=== PATIENT | female | born 1985 | race Caucasian/White ===

== ENCOUNTER 2022-12-14 07:32 | Emergency (ER) | payer SELFPAY ==
--- OUTSIDE RECORDS SUMMARY | 2022-12-14 07:36 | XMS REPORT | Continuity of Care Document ---
:1985 Author Organization [facility] t Address [address] [place] [address] Care Team Providers Name Role Phone Pcp, Patient Does Not Have A Primary Care Physician +[id number] Doctor Unassigned, [place] Attending Clinician Unavailable Problems Condition Condition Condition Status Onset Resolution Last Treating Co mments Source Name Details Category Date Date Treatment Clinician Date Contracept Contracept Disease Active U nivers [place] 01-20 [place] Excessive Excessive Disease Active Uni vers or or 01-20 ity of frequent frequent 00:00: [place] menstruati menstruati 00 Me dical on on Branch BV BV Disease Active Univers (bacterial (bacterial 01-20 it y of vaginosis[place] [facility] History of History of Disease Active U nivers tubal tubal 01-20 ity of ligation ligation 00:00: [address] Allergies, Adverse Reactions, Alerts This patient has no known allergies or adverse reactions. Social History Social Habit Start Date Stop Date Quantity Comments Source Alcohol intake 2019-05-29 2019-05-29 [facility] 00:00:00 00:00:00 non-drinker of [facility] alcohol [place] (finding) Sex Assigned At [birth year] Universit y of 00:00:00 00:00:00 [facility] Smoking Status Start Date Stop Date Source Never smoked tobacco [facility] Medications Ordered Filled Start Stop Current Ordering Indication Dosage Frequency Signature Comments Components Source Medication Medication Date Date Medication? Clinician (SIG) Name Name acetaminoph Yes [id number] 1{tbl} Take 1 Univers en-codeine 7-08 tablet by ity of (TYLENOL-CO 00:00: mouth [place] DEINE #3) 00 every 4 Medical 300-30 mg (four) Branch tablet hours as needed for Pain (scale 7-10). norgestimat Yes [id number] 1{tbl} Take 1 Tab Univers e-ethinyl 2-29 by mouth ity of estradiol 00:00: daily. [place] (ORTHO 00 Medical TRI-CYCLEN, Branch 28,) 0.18/0.215/ 0.25 mg-35 mcg (28) tablet metroNIDAZO Yes [id number] 500mg Take 1 Tab Univers LE (FLAGYL) 2-29 by mouth 2 it y of 500 mg 00:00: (two) [place] tablet 00 times Medical daily. Branch acetaminoph Yes 1{tbl} Take 1 Tab Univers en-codeine 4-20 by mouth ity o f (TYLENOL 00:00: every 4 [place] #3) 300-30 00 (four) Medical mg tablet hours as Branch needed for Pain (scale 7-10). chlorhexidi Yes 15mL Swish and U nivers ne 4-20 spit out ity of (PERIDEX) 00:00: 15 mL 2 [place] 0.12 % 00 (two) Medical mouthwash times Branch daily. ibuprofen Yes 600mg Take 1 Tab U nivers (MOTRIN) 4-20 by mouth ity of 600 mg 00:00: every 6 [place] tablet 00 (six) Medical hours as Branch needed for Pain (scale 4-6). penicillin Yes 500mg Take 1 Tab Univers v potassium 1-21 by mouth 2 it y of (PEN-VEE K) 00:00: (two) [place] 500 mg 00 times Medical tablet daily. Branch Immunizations Ordered Filled Immunization Date Status Comments Sour e Immunization Name Name Influenza Virus 2008-11-03 Completed Universit y of Vaccine 00:00:00 [facility] MMR 2008-11-03 Completed University of 00:00:00 [facility] Procedures Procedure Date / Time Performing Clinician Source Performed AUTHORIZATION FOR 2022-08-04 05:01:00 Doctor Unassigned, No Univ [facility] RELEASE OF PHI Name Medical Branch Encounters Start End Encounter Admission Attending Care Care Encounter Source Date/Time Date/Time Type Type Clinicians Facility Department ID 2022-08-04 2022-08-04 Orders Doctor SAMINA [id number] Univers 00:00:00 00:00:00 Only Unassigned, ALHAJI [id number] ity of [place] [facility] [id number] [place] as [id number] [facility] 009 Branch Results This patient has no known results.
[2022-12-14] MEDS ORDERED: KETOROLAC 30 MG/ML INJ ONE (07:54)
[2022-12-14] MEDS ORDERED: NA CHLORIDE 0.9% 1,000 ML ONE (07:55)
[2022-12-14 08:08] LABS: Absolute Lymphocytes (CBC) 3.5 K/uL (0.7-4.9); Hematocrit 38.5 % (36.0-45.0); Lymphocytes % 31.4 % (15.3-44.8); MCV 93.1 fL (80-100); RBC Red Blood Cell Count 4.14 M/uL (3.86-4.86)
[2022-12-14 08:19] LABS: Urine Blood Negative (Negative); Urine Glucose Negative (Negative); Urine Protein Negative (Negative); Urine Specific Gravity 1.015 (1.005-1.030)
[2022-12-14 08:21] LABS: Albumin 3.8 g/dL (3.4-5.0); Bilirubin Total 0.5 mg/dL (0.2-1.0); Potassium 4.2 mmol/L (3.5-5.1); Protein, Total 7.2 g/dL (6.4-8.2)
[2022-12-14 08:28] LABS: Urine Specific Gravity/Preg 1.015 (1.005-1.030)
--- NOTE | 2022-12-14 09:09 | RAD REPORT ---
EXAM DESCRIPTION: US - Transvaginal Study Probe - 12/14/2022 9:01 am CLINICAL HISTORY: ABD PAIN Pelvic pain. COMPARISON: No comparisons FINDINGS: The uterus is normal in size, shape and echotexture. The uterus measures 9.0 x 5.5 x 3.8 c m. The endometrial stripe measures 10 mm, normal. Both ovaries are normal in size, shape and echotexture. The right ovary measures 3.0 x 2.0 x 1.6 cm. The left ovary measures 5.5 x 4.9 x 3.9 cm.. 4.3 x 4.1 cm intermediate echogenicity lesion left ova ry seen. This has relatively low level internal echoes segment diffuse pattern. This is favored to be hemorrhagic cyst or endometrioma. Normal Doppler blood flow was demonstrated to both ovaries. No significant pelvic ascites. IMPRESSION: 4 cm left ovarian lesion noted which is favored to represent hemorrhagic cyst or endomet rioma.Recommend follow-up pelvic sonography in 6-8 weeks.
--- NOTE | 2022-12-14 09:24 | ER ---
Nurse's Notes [facility] Name: Shauna Ritchie Age: 37 yrs Sex: Female : 1985 Arrival Date: 12/14/2022 Time: 07:35 Bed 5 Private MD: Diagnosis: Other and unspecified ovarian cysts;Lower abdominal pain, unspecified Presentation: 12/14 07:51 Chief complaint: Patient states: Woke up this morning with sharp, throbbing LLQ pain ss that radiates to vagina and down L leg. HX of ovarian cysts. Pt reports this feels similar. Coronavirus screen: Client denies travel out of the [place] in the last 14 days. Ebola Screen: Patient denies exposure to infectious person. Patient denies travel to an Ebola-affected area in the 21 days before illness onset. Initial Sepsis Screen: Does the patient meet any 2 criteria? No. Patient's initial sepsis screen is negative. Does the patient have a suspected source of infection? No. Patient's initial sepsis screen is negative. Risk Assessment: Do you want to hurt yourself or someone else? Patient reports no desire to harm self or others. Onset of symptoms was December 14, 2022. 07:51 Method Of Arrival: Ambulatory ss 07:51 Acuity: THUAN 3 ss Triage Assessment: 08:01 General: Appears uncomfortable, Behavior is calm, cooperative. Pain: Complains of pain ap3 in left lower quadrant Pain radiates to left leg. Neuro: Oriented to person, place, time. Cardiovascular: Patient's skin is warm and dry. Respiratory: Airway is patent Respiratory effort is even, unlabored. GI: Reports lower abdominal pain. 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 - Social history:: Smoking status: Patient reports the use of cigarette tobacco products, smokes one-half pack cigarettes per day. Screenin:59 [facility] ED Fall Risk Assessment (Adult) History of falling in the last 3 months, ap3 including since admission No falls in past 3 months (0 pts). Abuse screen: Denies threats or abuse. Nutritional screening: No deficits noted. Tuberculosis screening: No symptoms or risk factors identified. Assessment: 08:02 GI: Bowel sounds present X 4 quads. Abd is soft X 4 quads. ap3 Vital Signs: 07:51 Pulse 77; Resp 18; Temp 97.8(O); Pulse Ox 98% on R/A; Weight 72.12 kg; Height 5 ft. 4 ss in. (162.56 cm); Pain 8/10; 08:59 BP 126 / 82; ap3 07:51 Body Mass Index 27.29 (72.12 kg, 162.56 cm) ss ED Course: 07:35 Patient arrived in ED. rg4 07:36 Alhaji Grayson DO is Attending Physician. ms3 07:47 Sol Guerrier, RN is Primary Nurse. ap3 07:52 Triage completed. ss 07:52 Arm band placed on right wrist. ss 08:00 CBC with Diff Sent. em1 08:00 CMP Sent. em1 08:00 Initial lab(s) drawn, by ar, sent to lab. Inserted saline lock: 20 gauge in right em1 forearm, using aseptic technique. Blood collected. 08:02 Patient has correct armband on for positive identification. Placed in gown. Bed in low ap3 position. Call light in reach. Side rails up X 1. Adult w/ patient. Pulse ox on. NIBP on. Door closed. Noise minimized. 08:33 Patient moved back from ultrasound. ko1 09:03 Transvaginal Study Probe In Process Unspecified. EDMS 09:14 Primary Nurse role handed off by Sol Guerrier, ANGEL ap3 09:23 Alexandra De Jesus MD is Referral Physician. ms3 09:28 Selina Hair, ANGEL is Primary Nurse. ko1 09:33 No provider procedures requiring assistance completed. IV discontinued, intact, ko1 bleeding controlled, No redness/swelling at site. Pressure dressing applied. Administered Medications: 08:03 Drug: NS 0.9% 1000 ml Route: IV; Rate: 1 bolus; Site: right forearm; ap3 09:35 Follow up: IV Status: Completed infusion; IV Intake: 1000ml ko1 08:03 Drug: TORadol - (ketorolac) 15 mg Route: IVP; Site: right forearm; ap3 09:09 Follow up: Response: No adverse reaction; Pain is decreased ap3 Medication: 08:02 VIS not applicable for this client. ap3 Intake: 09:34 IV: 1000ml (IV Fluid); Total: 1000ml. ko1 09:35 IV: 1000ml; Total: 2000ml. ko1 Outcome: 09:23 Discharge ordered by MD. ms3 09:33 Discharged to home ambulatory, with family. ko1 09:33 Condition: good 09:33 Discharge instructions given to patient, family, Instructed on discharge instructions, follow up and referral plans. medication usage, Demonstrated understanding of instructions, follow-up care, medications, Prescriptions given X 1. 09:35 Patient left the ED. ko1 Signatures: Dispatcher [employer] EDMS Adeel Berumen em1 Audelia Hernandez RN RN Minna Clinton rg4 Sol Guerrier RN RN ap3 Alhaji Grayson DO DO ms3 Selina Hair RN RN ko1 Corrections: (The following items were deleted from the chart) 07:53 07:52 PMHx: None; ss ss
--- NOTE | 2022-12-14 09:24 | EDPHYS ---
Physician Documentation [facility] Name: Shauna Ritchie Age: 37 yrs Sex: Female : 1985 Arrival Date: 12/14/2022 Time: 07:35 Bed 5 Private MD: ED Physician Alhaji Grayson HPI: 12/14 07:44 This 37 yrs old Female presents to ER via Unassigned with complaints of Abdominal Pain. ms3 07:44 37-year-old female with no past medical history presents for left lower quadrant ms3 abdominal pain that began this morning. Patient rates her pain an 8/10 and describes the pain as being sharp and throbbing radiating down her left leg. Patient states she has had ovarian cyst in the past and this pain is similar to that. Patient notes she has had a bilateral tubal ligation. Patient denies nausea, vomiting, diarrhea, fevers, chills.. 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 - Social history:: Smoking status: Patient reports the use of cigarette tobacco products, smokes one-half pack cigarettes per day. ROS: 07:44 Constitutional: Negative for fever, and chills. Eyes: Negative for injury, pain, ms3 redness, and discharge, Neck: Negative for injury, pain, and swelling, Cardiovascular: Negative for chest pain, and palpitations. Respiratory: Negative for shortness of breath, cough, wheezing, and pleuritic chest pain. 07:44 MS/Extremity: Negative for injury and deformity, Skin: Negative for injury, rash, and discoloration. 07:44 Abdomen/GI: Positive for abdominal pain, Negative for nausea, vomiting, and diarrhea. 07:44 All other systems are negative. Exam: 07:44 Constitutional: This is a well developed, well nourished patient who is awake, alert, ms3 and in no acute distress. Head/Face: Normocephalic, atraumatic. Neck: Trachea midline, no cervical lymphadenopathy. Supple, full range of motion without nuchal rigidity, or vertebral point tenderness. No Meningismus. Chest/axilla: Normal chest wall appearance and motion. Nontender with no deformity. Cardiovascular: Regular rate and rhythm with a normal S1 and S2. No gallops, murmurs, or rubs. Normal PMI, no JVD. No pulse deficits. Respiratory: Lungs have equal breath sounds bilaterally, clear to auscultation and percussion. No rales, rhonchi or wheezes noted. No increased work of breathing, no retractions or nasal flaring. 07:44 Skin: Warm, dry with normal turgor. Normal color with no rashes, no lesions, and no evidence of cellulitis. MS/ Extremity: Pulses equal, no cyanosis. Neurovascular intact. Full, normal range of motion. Neuro: Awake and alert, GCS 15, oriented to person, place, time, and situation. Cranial nerves II-XII grossly intact. Motor strength 5/5 in all extremities. Sensory grossly intact. Cerebellar exam normal. Normal gait. 07:44 Abdomen/GI: Inspection: abdomen appears normal, Bowel sounds: normal, Palpation: moderate abdominal tenderness, in the left lower quadrant. Vital Signs: 07:51 Pulse 77; Resp 18; Temp 97.8(O); Pulse Ox 98% on R/A; Weight 72.12 kg; Height 5 ft. 4 ss in. (162.56 cm); Pain 8/10; 08:59 BP 126 / 82; ap3 07:51 Body Mass Index 27.29 (72.12 kg, 162.56 cm) ss MDM: 07:43 Patient medically screened. ms3 07:44 Differential diagnosis: Ectopic , non-specific abd pain, Ovarian Torsion, ms3 Ovarian Cyst. 09:37 Data reviewed: vital signs, nurses notes, lab test result(s), radiologic studies, and ms3 as a result, I will discharge patient. Consideration of Admission/Observation Escalation of care including admission/observation considered. No emergent medical condition necessitating admission found at this time. I considered the following discharge prescriptions or medication management in the emergency department Medications were administered in the Emergency Department. See MAR See prescriptions. Historians other than the Patient: Spouse/Significant Other: Patient's . Care significantly affected by the following Social Determinants of Health: Poor access to healthcare and/or lack of insurance. Counseling: I had a detailed discussion with the patient and/or guardian regarding: the historical points, exam findings, and any diagnostic results supporting the discharge/admit diagnosis, lab results, radiology results, the need for outpatient follow up, Will need repeat ultrasound in 6 to 8 weeks., to return to the emergency department if symptoms worsen or persist or if there are any questions or concerns that arise at home. ED course: Discussed ultrasound and labs with patient. Discussed with patient ultrasound findings and recommendation for repeat ultrasound in 6 to 8 weeks. Patient and her understand and agree with plan. All questions were answered. Return precautions discussed include worsening symptoms, or any other concerns. On reevaluation patient is improved, alert and oriented x4, in no apparent distress, nontoxic, ambulatory in the emergency department.. 12/14 07:44 Order name: CBC with Diff; Complete Time: 08:51 ms3 12/14 07:44 Order name: CMP; Complete Time: 08:51 ms3 12/14 08:19 Order name: Urine Dipstick-Ancillary; Complete Time: 08:51 EDMS 12/14 08:22 Order name: Urine --Ancillary (enter results); Complete Time: 08:51 bd 12/14 08:39 Order name: Transvaginal Study Probe; Complete Time: 09:21 EDMS 12/14 07:44 Order name: IV Saline Lock; Complete Time: 08:00 ms3 12/14 07:44 Order name: Labs collected and sent; Complete Time: 08:00 ms3 12/14 07:44 Order name: Urine Dipstick-Ancillary (obtain specimen); Complete Time: 08:21 ms3 12/14 07:44 Order name: Urine Test (obtain specimen); Complete Time: 08:21 ms3 Administered Medications: 08:03 Drug: NS 0.9% 1000 ml Route: IV; Rate: 1 bolus; Site: right forearm; ap3 09:35 Follow up: IV Status: Completed infusion; IV Intake: 1000ml ko1 08:03 Drug: TORadol - (ketorolac) 15 mg Route: IVP; Site: right forearm; ap3 09:09 Follow up: Response: No adverse reaction; Pain is decreased ap3 Disposition Summary: 12/14/22 09:23 Discharge Ordered Location: Home ms3 Condition: Stable ms3 Diagnosis - Other and unspecified ovarian cysts ms3 - Lower abdominal pain, unspecified ms3 Followup: ms3 - With: Alexandra De Jesus MD - When: 2 - 3 days - Reason: Recheck today's complaints Discharge Instructions: - Discharge Summary Sheet ms3 - Abdominal Pain, Adult ms3 - Ovarian Cyst, [id number] ms3 Forms: - Medication Reconciliation Form ms3 - Thank You Letter ms3 - Antibiotic Education ms3 - Prescription Opioid Use ms3 Prescriptions: - Ibuprofen 600 mg Oral Tablet - take 1 tablet by ORAL route every 6 hours As needed take with food; 30 tablet; ms3 Refills: 0, Product Selection Permitted Signatures: Dispatcher [employer] EDMS Audelia Hernandez RN RN ss Sol Guerrier RN RN ap3 Alhaji Grayson DO DO ms3 Selina Hair RN ko1 Corrections: (The following items were deleted from the chart) 07:53 07:52 PMHx: None; [facility] 08:39 07:44 Pelvis Complete+US.RAD.BRZ ordered. EDMS EDMS
[2022-12-14 09:45] VITALS: TEMP 97.8; O2SAT 98
[2022-12-14 09:51] VITALS: BP 126/82
== END 2022-12-14 09:35 | disposition home or self-care (01) ==
LOC: ER 07:32
DX: N83.299 Other ovarian cyst, unspecified side (principal); F17.210 Nicotine dependence, cigarettes, uncomplicated
CPT/HCPCS: 36415; 76830; 80053; 81003; 81025; 85025; 96361; 96374; 99284; J7030